=== PATIENT | female | born 1980 | race African-American/Black ===

== ENCOUNTER 2020-04-12 20:58 | Emergency (ER) | payer SELFPAY ==
--- NOTE | ~2020-04-12 | XR_ITS ---
EXAMINATION: XR chest 1V portable EXAM DATE: 04/12/2020 22:43 INDICATION: Shortness of breath. Asthma attack. TECHNIQUE: Portable AP frontal chest x-ray was obtained. There is no prior study for comparison. FINDINGS: The lungs are clear. There are no pleural effusions. The cardiomediastinal silhouette is within normal limits. There is no pneumothorax suspected. The bones and soft tissues are unremarkab le. IMPRESSION: No acute cardiopulmonary findings. Reviewed, dictated and finalized at location G.
[2020-04-12 21:05] VITALS: BP 139/93; PULSE 100; RESP 55; O2SAT 99
--- NOTE | 2020-04-12 21:11 | ED.SOB ---
HPI - SOB/Dyspnea General Chief Complaint: Shortness of Breath/Dyspnea Stated Complaint: asthma attack Time Seen by Provider: 04/12/20 21:11 History of Present Illness HPI Narrative: 39 yo female w/ h/o asthma presents to the ED for SOB. Intermittent SOB for the past few days. Previously improving with albuterol. Tonight she tried her albuterol, but it was empty. She does have some chest tightness, but no pain. No fever, chills, cough, congestion. Related Data Allergies Allergy/AdvReac Type Severity Reaction Status Date / Time ibuprofen [From Motrin] Allergy Wheezing Verified 04/12/20 21:05 Review of Systems Review of Systems: All systems reviewed & are unremarkable except as noted in HPI and below Constitutional: Constitutional: Denies chills and Denies fever(s) Cardiovascular: Cardiovascular: Denies chest pain Respiratory: Respiratory: Denies cough, Reports dyspnea and Reports wheezing Gastrointestinal: Gastrointestinal: Denies abdominal pain Genitourinary: Genitourinary: Denies hematuria and Denies dysuria Musculoskeletal: Musculoskeletal: Reports back pain Neurologic: Denies dizziness and Denies weakness [facility] Past Medical History Medical History (Updated 04/12/20 @ 22:42 by Wolf Owen MD) Asthma Social History Social History Gender identity (if verbalized by the patient): Female Exam Const: General: no acute distress and alert Orientation/consciousness: patient oriented x3 HENMT: Head: normal to inspection Chest: Chest palpation & inspection: normal inspection of the chest and no tenderness Resp: Effort & Inspection: labored and tachypneic Auscultation: wheezes and diminished lung sounds Cardio: Rate: regular rate Rhythm: regular rhythm GI: GI Palp: Yes Soft to palpation and No Tenderness to palpation present (GI) Skin: General skin exam: normal color Neuro: General: patient oriented x3, moves all extremities, no focal motor deficits and CN's II-XI intact bilaterally Speech: normal speech Extrem: General: normal to inspection and no edema Course Vital Signs Vital signs: Vital Signs Pulse Rate 100 04/12/20 21:05 Respiratory Rate 55 H 04/12/20 21:05 Blood Pressure 139/93 H 04/12/20 21:05 Pulse Oximetry 99 04/12/20 21:05 Pulse Rate 98 04/12/20 22:47 Respiratory Rate 20 04/12/20 22:47 Blood Pressure 139/93 H 04/12/20 21:05 Pulse Oximetry 96 04/12/20 22:47 MDM - SOB/Dyspnea MDM Narrative Medical decision making narrative: She presents with the symptoms of an asthma exacerbation. I will obtain an x-ray to rule out other causes. Symptoms improved with nebulizer and steroids. Differential Diagnosis Differential diagnosis: Likely community acquired pneumonia and asthma with exacerbation Medical Records Attestation: I reviewed the patient's medical records. Imaging Data Attestation: I personally reviewed and interpreted this imaging study as follows: My impression: Chest x-ray negative Discharge Plan Discharge Clinical Impression: Asthma with exacerbation Qualifiers: Asthma severity: unspecified severity Asthma persistence: unspecified Qualified Code(s): J45.901 - Unspecified asthma with (acute) exacerbation Patient Disposition: Home, Self-Care Condition: Stable Instructions: Asthma (ED) Prescriptions: New prednisone 20 mg tablet 60 mg PO DAILY 4 Days Qty: 12 RF: 0 albuterol sulfate 90 mcg/actuation HFA aerosol inhaler 2 puff inhalation QID PRN (Reason: shortness of breath or wheezing) Qty: 8.5 RF: 0 Follow-up/Referrals: Delmar Cintron MD [Physician] - PHYSICIAN,[employer]ER [Primary Care Provider] -
[2020-04-12] MEDS: ALBUTEROL SULFATE NEB 2.5 MG/3 ML INH 1.25 MG INHALATION (21:20)
[2020-04-12] MEDS: IPRATROPIUM BR 0.02% INH SOLN 0.5 MG/2.5 ML VIAL INHALATION (21:20)
[2020-04-12] MEDS: ALBUTEROL SULFATE NEB 2.5 MG/0.5 ML INH 10 MG INHALATION (22:46)
[2020-04-12 22:47] VITALS: PULSE 98; RESP 20; O2SAT 96
[2020-04-12 23:09] VITALS: PULSE 100; RESP 28
[2020-04-12 23:31] VITALS: BP 143/89; PULSE 89; RESP 18; TEMP 36.7; O2SAT 100
== END 2020-04-12 23:32 | disposition home or self-care (01) ==
PROVIDERS: Emergency Provider Emergency Medicine
DX: J45.901 Unspecified asthma with (acute) exacerbation (principal)
CPT/HCPCS: 71045; 96374; 99284; J1100